=== PATIENT | female | born 1990 | race Caucasian/White ===

== ENCOUNTER 2018-12-11 19:48 | Emergency (ER) | payer OTHER ==
[~2018-12-11] VITALS: Ht 172.7 cm; Wt 60.0 kg
[~2018-12-11 19:48] MED LIST: CETI10CA PO; FLUT9.9S NASAL; ONDA4TAB14 PO
[2018-12-11 20:08] VITALS: BP 139/89; PULSE 96; RESP 16; Ht 172.7 cm; Wt 60.0 kg
[2018-12-11] MEDS ORDERED: ONDANSETRON (ODT) 4 MG TAB ODT STA (21:06)
[2018-12-11] MEDS ORDERED: ACETAMINOPHEN 500 MG TAB PO STA (23:10)
== END 2018-12-11 23:19 | disposition home or self-care (01) ==
LOC: FTE 19:48
DX: R50.9 Fever, unspecified (principal); R11.0 Nausea; R07.9 Chest pain, unspecified
CPT/HCPCS: 71045; 81025; 93005; Z7502; Z7610